=== PATIENT | male | born 1960 | race Caucasian/White ===

== ENCOUNTER → 2020-02-27 08:35 | Outpatient (CLI) | payer OTHER, SELFPAY ==
--- NOTE | 2020-02-26 | IMM_PTH ---
PATIENT: ZENOBIA THOMAS LOC: [facility] U#:[id number] AGE/SX: 64/M ROOM: RE02/27/[address]: Dr. Phil Hinojosa MD : 1960 BED: DIS: SPEC #: [id number] RECD: 03/01/20 10:19 STATUS: JOSÉ RE #: [id number] VIJAY: 02/26/20 00:[address]: Phil Hinojosa DEPT: IMMUNOHISTOCHEMISTRY RECD BY: Paola Enriquez Tissues: A - PROSTATE RIGHT B - PROSTATE RIGHT C - PROSTATE RIGHT D - PROSTATE LEFT E - PROSTATE LEFT F - PROSTATE LEFT Procedures: 34BE12 (add) P40 (add) 34BE12 (initial) PHYSICIAN & INSTITUTION [place] [id number] SPECIMEN INFORMATION: Tissue Source: A - Right apex, B - Right mid, C - Right base, D - Left apex, E - Left mid, F - Left base Clinical Info: Elevated PSA Specimen Number: [id number] A-F CPT code: 87303, 19416 x11 METHODOLOGY: Deparaffinized sections of prefer/formalin-fixed tissue or PAP/DQ stained slides are incubated with monoclonal/polyclonal antibodies/oligonucleotide probes. Localization is made via biotin free immunoperoxidase method. Appropriate controls are performed and reacted as expected. Results on target cell population are indicated in the following table: RESULTS: ANTIBODY / CLONE RESULT Block A P40 (BC28) negative 34BE12 (34BE12) negative Block B P40 (BC28) negative 34BE12 (34BE12) negative Block C P40 (BC28) negative 34BE12 (34BE12) negative Block D P40 (BC28) negative 34BE12 (34BE12) negative Block E P40 (BC28) positive 34BE12 (34BE12) positive Block F P40 (BC28) negative 34BE12 (34BE12) negative These tests were developed and their performance characteristics determined by [facility]. They may not have been cleared or approved by the U.[place]. Food and Drug Administration. The FDA has determined that such clearance or approval is not necessary. The above immunohistochemical/dualISH markers are ordered and reviewed by the Pathologist. INTERPRETATION: A. Right prostate, apex, core biopsy: A minute focus of adenocarcinoma. B. Right prostate, mid, core biopsy: Adenocarcinoma. C. Right prostate, base, core biopsy: A minute focus of adenocarcinoma. D. Left prostate, apex, core biopsy: A minute focus of adenocarcinoma. E. Left prostate, mid, core biopsy: Focal high-grade prostatic intraepithelial neoplasia (HGPIN). F. Left prostate, base, core biopsy: Adenocarcinoma. SJ:samantha 03/02/2020
--- NOTE | 2020-02-26 11:30 | PROSBIL_PTH ---
PATIENT: ZENOBIA THOMAS LOC: [facility] U#:[id number] AGE/SX: 64/M ROOM: RE02/27/[address]: Dr. Phil Hinojosa MD : 1960 BED: DIS: SPEC #: [id number] RECD: 02/26/20 17:53 STATUS: JOSÉ TOM #: [id number] VIJAY: 02/26/20 11:[address]: Phil Hinojosa DEPT: SURGICAL PATHOLOGY RECD BY: Camille Keenan Tissues: A - PROSTATE RIGHT B - PROSTATE RIGHT C - PROSTATE RIGHT D - PROSTATE LEFT E - PROSTATE LEFT F - PROSTATE LEFT Procedures: PROSTATE BX HEADER OPERATION: TRUS/biopsy PRE-OP DIAGNOSIS: Elevated PSA TISSUE SUBMITTED: A - Right apex, B - Right mid, C - Right base, D - Left apex, E - Left mid, F - Left base MICROSCOPIC DIAGNOSIS A. Right prostate, apex, core biopsy: A minute focus of prostatic adenocarcinoma. Ida grade: 3+3=6 Number of cores involved: 1/2 Proportion of tissue involved: <5% Perineural invasion: Not identified. Greatest tumor length: <0.1 cm Focal mild chronic inflammation. See comment. B. Right prostate, mid, core biopsy: Prostatic adenocarcinoma. [place] grade: 3+3=6 Number of cores involved: 2/2 Proportion of tissue involved: ~15-20% Perineural invasion: Not identified. Greatest tumor length: 0.4 cm Focal mild chronic inflammation. See comment. C. Right prostate, base, core biopsy: A minute focus of prostatic adenocarcinoma. Ida grade: 3+3=6 Number of cores involved: 1/2 Proportion of tissue involved: <5% Perineural invasion: Not identified. Greatest tumor length: <0.1 cm Focal mild chronic inflammation. Focal high-grade prostatic intraepithelial neoplasia (HGPIN). See comment. D. Left prostate, apex, core biopsy: A minute focus of prostatic adenocarcinoma. Ida grade: 3+3=6 Number of cores involved: 1/2 Proportion of tissue involved: <5% Perineural invasion: Not identified. Greatest tumor length: <0.1 cm Focal mild chronic inflammation. See comment. E. Left prostate, mid, core biopsy: Focal high-grade prostatic intraepithelial neoplasia (HGPIN). See comment. F. Left prostate, base, core biopsy: Prostatic adenocarcinoma. Ida grade: 3+3=6 Number of cores involved: 1/2 Proportion of tissue involved: ~35-40% Perineural invasion: Not identified. Greatest tumor length: 0.9 cm, discontinuous. Focal high-grade prostatic intraepithelial neoplasia (HGPIN). See comment. MCKENZIE:samantha 03/01/2020 COMMENT A-F. Immunohistochemistry ([id number]) supports the above diagnosis. Case has been reviewed in consultation with Dr. Toro who concurs with the above diagnosis. IDC:AM MICROSCOPIC DESCRIPTION Slides are reviewed. GROSS DESCRIPTION A - Received is one container designated prostate, right apex. The specimen consists of two elongated fragments of light mendez-white soft tissue each measuring 1 cm in length and 0.1 cm in diameter. The specimen is totally submitted in one cassette. B - Received is one container designated prostate, right mid. The specimen consists of two elongated fragments of light mendez-white soft tissue each measuring 1.5 cm in length and 0.1 cm in diameter. The specimen is totally submitted in one cassette. C - Received is one container designated prostate, right base. The specimen consists of two elongated fragments of light mendez-white soft tissue each measuring 1.5 cm in length and 0.1 cm in diameter. The specimen is totally submitted in one cassette. D - Received is one container designated prostate, left apex. The specimen consists of two elongated fragments of light mendez-white soft tissue each measuring 1 cm in length and 0.1 cm in diameter. The specimen is totally submitted in one cassette. E - Received is one container designated prostate, left mid. The specimen consists of two elongated fragments of light mendez-white soft tissue each measuring 1 cm in length and 0.1 cm in diameter. The specimen is totally submitted in one cassette. F - Received is one container designated prostate, left base. The specimen consists of two elongated fragments of light mendez-white soft tissue each measuring 1.5 cm in length and 0.1 cm in diameter. The specimen is totally submitted in one cassette. / AM:samantha 02/27/2020 TC:0 [facility]: [id number] x6
== END ==
PROVIDERS: Visit Provider Urology
DX: R97.20 Elevated prostate specific antigen [PSA] (principal)
CPT/HCPCS: 88305; 88341; 88342; G0416

== ENCOUNTER 2020-04-14 05:53 | Day surgery (SDC) | payer OTHER, SELFPAY ==
--- NOTE | 2020-04-13 08:39 | EKG12_ITS ---
Test Reason : PRE OP Blood Pressure : / mmHG Vent. Rate : 064 BPM Atrial Rate : 064 BPM P-R Int : 156 ms QRS Dur : 080 ms QT Int : 400 ms P-R-T Axes : 044 045 083 degrees QTc Int : 412 ms Normal sinus rhythm Nonspecific ST and T wave abnormality Abnormal ECG No previous ECGs available Confirmed by NIRMAL SERRA, ASAEL ([id number]), book editor LORRIE PALACIOS ([id number]) on 04/13/2020 11:49:53 AM Referred By: Phil Hinojosa Confirmed By:ASAEL KINNEY MD
[2020-04-13 10:45] LABS: Hematocrit 47.9 % (40-54); Hemoglobin 16.1 g/dL (13.0-16.5); Mean Corp Hgb Conc 33.6 g/dL (32-36); Mean Corpuscular Hgb 31.7 pg (27.0-32.0); Mean Corpuscular Volume 94.3 fL (80-94); Mean Platelet Vol. 9.8 fl (6.2-12.0); Platelet Count 238 K/mm3 (150-450); RBC Distribution Width SD 44.8 fl (35.1-43.9); Red Blood Count 5.08 M/mm3 (4.6-6.2); White Blood Count 6.8 K/mm3 (4.4-11.0)
[2020-04-14] VITALS (15 sets, daily range): BP systolic 110–138; BP diastolic 58–88; PULSE 64–86; RESP 16–20; TEMP 36.2–36.7; O2SAT 91–98; BMI 37.1
--- NOTE | 2020-04-14 | PROST_PTH ---
PATIENT: ZENOBIA THOMAS LOC: [facility] U#:[id number] AGE/SX: 59/M ROOM: RE04/14/[address]: Dr. Phil Hinojosa MD : 1960 BED: DIS: 04/15/2020 SPEC #: [id number] RECD: 04/14/20 13:15 STATUS: JOSÉ RECassidy #: [id number] VIJAY: 04/14/20 00:[address]: Phil Hinojosa DEPT: SURGICAL PATHOLOGY RECD BY: Patrick De Los Santos ENTERED: 04/15/20 07:29 SP TYPE: PROSTATE OTHR DR: Dr. Tapan Will MD Tissues: B - Prostate, NOS A - Adipose tissue Procedures: Surgery Specimen Level III Surgery Specimen Level HEADER OPERATION: Laparoscopic robotic radical prostatectomy with nerve sparing PRE-OP DIAGNOSIS: Malignant neoplasm of prostate, elevated PSA TISSUE SUBMITTED: A - Fat over prostate, B - Prostate MICROSCOPIC DIAGNOSIS A. Fat over prostate, biopsy: Pieces of mature adipose tissue, negative for carcinoma. B. Prostate, radical prostatectomy: Prostatic adenocarcinoma. See cancer summary in the comment section. SJ:samantha 04/20/2020 COMMENT PROSTATE CANCER (RADICAL) SUMMARY: Procedure: Radical Prostatectomy Prostate Size: Weight: 64 gm Size: 5 cm transversely, 4.5 cm anterior-posteriorly and 4 cm craniocaudally Histologic type: Adenocarcinoma Histologic grade: Grade group 2 (Ida 3 + 4) Intraductal Carcinoma: Not identified Tumor Quantitation: Estimated percentage of prostate involved by tumor: 30%, tumor is present in discontinuous fashion. Extraprostatic extension: present, focal Location of extraprostatic Extension: Right posterior Urinary Bladder Neck Invasion: Not identified Seminal Vesicle Invasion: Present, left Lymphvascular Invasion: Not identified Perineural Invasion: Present, extensive Margins: Involved by invasive carcinoma. Non-limited Linear length of positive margin: 4 mm Focality: Focal Location of positive margin: Right posterior Treatment effect: No known presurgical therapy. Regional Lymph Nodes: No lymph nodes submitted or found. Distant metastasis: Not applicable Additional Pathologic Findings: - Benign prostatic hyperplasia, glandular and stromal type. - Focal high-grade prostatic intraepithelial neoplasia (HGPIN). - Chronic inflammation. PATHOLOGIC STAGE: pT3 ab pNx Mx The above summary is in compliance with [employer] [place] (CAP) Cancer Protocols Checklist and [place] [employer] on Cancer (AJCC), Staging Manual, 8th Ed. The tumor involves both right and left lobe, apical, mid and basal portion of the prostate. The tumor in the right lobe measures approximately 3 x 1.5 x 1 cm and tumor in the left lobe measures 2.5 x 2.5 x 1 cm. Please make reference to previous specimen ([id number]) right prostate, apex, mid and base and left prostate, apex and base, core biopsies with diagnosis of prostatic adenocarcinoma. MICROSCOPIC DESCRIPTION Slides are reviewed. GROSS DESCRIPTION A - Received in fixative is one container labeled with the patient's name and designated fat over prostate. The specimen consists of two pieces of adipose tissue measuring 3 x 2.5 x 0.5 cm and 2.5 x 2 x 0.5 cm. No mass lesion is identified. Coal Pulverizer Operator sections are submitted in one cassette. B - Received in fixative is one container labeled with the patient's name and designated prostate. The specimen consists of a radical prostatectomy specimen consisting of prostate and attached bilateral seminal vesicles. The entire specimen weighs 64 gm. The prostate measures 5 cm transversely, 4.5 cm anterior-posteriorly and 4 cm craniocaudally. A small portion of right seminal vesicle is present and measures 2 x 1 x 0.5 cm and right vas deferens measures 3.5 cm in length and 0.5 cm in diameter. A small portion of left seminal vesicle is present and measures 1.5 x 1 x 1 cm and the left vas deferens measures 2.5 cm in length and 0.5 cm in diameter. The prostate is inked as follows: anterior surface - yellow, posterior surface - black, right lateral - blue, left lateral - green. The bilateral seminal vesicles and vas deferens posterior surface is inked black, anterior surface right seminal vesicle and vas deferens is inked blue and anterior left seminal vesicle and vas deferens is inked green. Sections of the prostate do not reveal any obvious mass lesions. Coal Pulverizer Operator sections are submitted in 20 cassettes as follows: 1 - right seminal vesicle and vas deferens, 2 - left seminal vesicle and vas deferens, 3 - apical margin, enface, 4 - bladder base margin, enface, 5 - most basal portion of prostate, enface, 6-10 - apical portion prostate, 11-14 - middle portion prostate, 15-20 - basal portion prostate. Sections will be submitted after overnight fixation. / SJ:samantha 04/15/20 TC:0 CPT: 94433, 93718
[2020-04-14] MEDS: Lactated Ringers 1,000 ML 100 ML IV ×3 (06:43→10:05)
[2020-04-14] MEDS: Cefazolin 2 GM in 0.9% Normal Saline 100 ML IV (07:24)
--- NOTE | 2020-04-14 07:35 | HP.PCM_ITS ---
Problem List (1) Prostate cancer Status: Acute History of Present Illness Date of Admission: 04/14/20 Chief Complaint: prostate cancer The patient is a 59 year old male with [place] 6 multiple cores ++, elected to have a nerve sparing radical prostatectomy. Past Medical History Allergies No Known Allergies Allergy (Verified 04/14/20 06:22) Home Medications: Ambulatory Orders Medication Instructions Recorded Multivitamin with Minerals 1 ea PO DAILY 04/07/20 [Multiple Vitamin] Mv-Mn/C/Glutamin/Lysin/[id number] 2 ea PO DAILY 04/07/20 [Airborne Gummies] Turmeric Root Extract [Turmeric] 500 mg PO DAILY 04/07/20 Surgical History: no surgical history Smoking Status: Never smoker Tobacco Use: Non-smoker Review of Systems Constitutional: Denies: Chills, Fever, Weight Change HEENT: Denies: Head Aches, Sinus Congestion, Sinus Drainage Cardiovascular: Denies: Chest Pain, Palpitations Respiratory: Denies: Cough, Shortness of breath at rest, Sputum production Gastrointestinal: Denies: Abdominal Pain, Nausea, Vomiting Genitourinary: Denies: Dysuria Musculoskeletal: Denies: Joint Pain, Joint Tenderness Skin: Denies: Rash, Wounds Neurological: Denies: Numbness, Tingling, Focal weakness Psychiatric: Denies: Anxiety, Depression, Homicidal Ideations, Suicidal Ideations Hematologic/ Lymphatic: Denies: Easy Bruising, Easy Bleeding VTE Information - Inpt Only VTE Present on Admission: No VTE Mechan Device Prophylaxis: SCD's - Physical Exam Vitals/I&O's: Vital Signs Temp Pulse Resp BP Pulse Ox 98.1 F 64 18 131/80 H 94 04/14/20 06:26 04/14/20 06:26 04/14/20 06:26 04/14/20 06:26 04/14/20 06:26 Oxygen Delivery Method Room Air Weight: 114.033 kg Body Mass Index (BMI) 37.1 General: Alert, Oriented x3, Cooperative HEENT: Atraumatic, PERRLA, EOMI, Normocephalic Neck: Supple, No JVD, Negative Carotid Bruits Lungs: Clear to auscultation, Normal air movement Cardiovascular: Regular rate, No murmurs Abdomen: Bowel Sounds Present, Soft, Non Tender Extremities: No edema, Capillary Refill Less than 3 Seconds Skin: No rashes, No breakdown Musculoskeletal: No Tenderness to Palpation of Joints or Extremities Neurological: Cranial nerves II-XII grossly intact Psych/Mental Status: Normal Affect, Appropriate Microbiology Past 72 Hours 04/13/20 08:55 Interface Orders SARS-CoV-2 Antigen (Rapid) - Final Laboratory Results 04/13/20 09:07: WBC 6.8, RBC 5.08, Hgb 16.1, Hct 47.9, MCV 94.3 H, MCH 31.7, MCHC 33.6, RDW Std Deviation 44.8 H, RDW Coeff of Ana Laura 13.0, Plt Count 238, MPV 9.8 04/13/20 09:07: Blood Type A POSITIVE, Antibody Screen NEGATIVE Current Medications Cefazolin Sodium 2 gm/ Sodium (Chloride) 110 mls @ 150 mls/hr IV PREOP ONE Stop: 04/14/20 08:13 Lactated Ringer's () 1,000 mls @ 100 mls/hr IV .Q10H NEGRO Last Admin: 04/14/20 06:43 Dose: 100 mls/hr Documented by: Assessment/Plan All Active Problems Prostate cancer (Acute) plan to proceed with nerve sparing radical prostatectomy.
--- NOTE | 2020-04-14 07:38 | DCINST_ITS ---
Discharge Diet: Light diet - advance as tolerated, Soft diet Discharge Activity: May not drive while taking narcotic pain medications., May Shower Return to work on:: 05/26/20 May resume sexual activity in: 6 weeks Call your doctor if your incision/area has: Continuous Slow Oozing, Sudden Increased Bleeding, Increased Pain/ Swelling, Increased Redness, Foul Smelling Discharge, Swelling at the incision site Call your doctor if you observe: Fever of 101 or Higher Suture Line Care: Avoid Pulling/Pushing, Avoid Pinching/Bending Instructions: Radical Prostatectomy Allergies/Adverse Reactions: Allergies No Known Allergies Allergy (Verified 04/14/20 06:22) Medications to take at Discharge Multivitamin with Minerals [Multiple Vitamin] 1 ea PO DAILY 04/07/20 Mv-Mn/C/Glutamin/Lysin/[id number] [Airborne Gummies] 2 ea PO DAILY 04/07/20 Turmeric Root Extract [Turmeric] 500 mg PO DAILY 04/07/20 Ciprofloxacin [Cipro] 500 mg PO BID #14 tab 04/14/20 Docusate Sodium [Colace] 100 mg PO BID #20 cap 04/14/20 Hydrocodone Bitart/Apap 5-325 [[place] 5MG-325MG] 1 tablet PO Q4H PRN PRN 7 Days #14 tablet 04/14/20 The following prescriptions were given: Ciprofloxacin [Cipro] 500 mg PO BID #14 tab Transmission Status: Pending to [facility] Docusate Sodium [Colace] 100 mg PO BID #20 cap Transmission Status: Pending to [facility] Hydrocodone Bitart/Apap 5-325 [[place] 5MG-325MG] 1 tablet PO Q4H PRN PRN 7 Days #14 tablet PRN Reason: Pain Transmission Status: Sent to [facility] Primary Care Physician: Tapan Will MD [Primary Care Provider] - Test Results: Test results from this visit will be discussed in further detail at your follow- up appointment, if applicable. Please Follow Up With: Phil Hinojosa MD - [phone] When: in 2 weeks, please call to make an appointment. Proposed Discharge Date: 04/15/20
--- NOTE | 2020-04-14 11:48 | OP.PCM_ITS ---
Problem List (1) Prostate cancer Status: Acute Report of Operation Date of Procedure: 04/14/20 Pre-Operative Diagnosis: prostate cancer Post-Operative Diagnosis: same Surgery/Procedure Performed:: radical prostatectomy robotic with bilateral nerve sparing Description of Surgical Findings:: Patient presented to the hospital for treatment of his prostate cancer with radical prostatectomy. In the preoperative setting we discussed the options of management for his prostate cancer including active surveillance, radiation treatments, radioactive seeds, and radical robotic prostatectomy. We discussed the side effects of surgery including the potential to lose erections. We discussed the potential to have bladder control problems with stress incontinence which can be temporary or permanent. We discussed the risk of the surgery including the risk of general anesthetic, risk of bleeding, risk of infection, and risk of formation of hernia either incisional hernia or inguinal hernia. After long discussion with the patient the preoperative setting and also reviewed this in the preop area patient signed the consent form and we proceeded with a radical prostatectomy. Patient was taken back to the operating room he was identified, time out procedure was performed and he was placed supine on the table he underwent general anesthesia with intubation. The abdomen was shaved prepped and draped in usual sterile fashion as well as the penis and testicles. A 16 Ghanaian catheter was placed into the bladder with clear return of urine. I then made an incision in the umbilicus and dissected down to the fascia advance a Veress needle into the peritoneal cavity and insufflated the peritoneal cavity with CO2 gas. I then placed a 12 mm trocar above the umbilicus. I then visualized the placement of the rest of the trochars, I placed a right arm robotic trocar, and air seal trocar, a suction port 5 mm trocar. And on the left side I placed 2 robotic arms. Once all the trochars were in placed the patient was put in steep Trendelenburg. And the robot was docked the arms were docked and then I placed the 0 degree camera through the robotic arm and also used a 30 degree camera during certain parts of the case. I used scissors in the right arm, prograsp in the third arm, and a bipolar in the second arm. Initial dissection was to free the sigmoid colon off the lateral wall this was done by meticulously dissecting off the peritoneum and the sigmoid colon off the left lateral wall. This then allowed the prograsp to retract the sigmoid colon out of the pelvis. I then sheridan t below the bladder and identified the vas deferens incised the peritoneum over the vas deferens and traced the vas deferens below the bladder to the prostate and identified the right and left vasa deferens. Below behind the vas deferens then the seminal vesicles were identified. I then dissected the seminal vesicle free using pinpoint electrocautery and then we identified the other seminal vesi hunter and then dissected this using pinpoint electrocautery I then elevated the vas deferens and several vesicles off the prostate and was able to sweep the Denonvilliers' fascia off the prostate posteriorly all the way up to the apex of the prostate. Working laterally I made sure I went as lateral as possible to sweep the Denonilliers' fascia off the posterior aspect of the prostate and worked my way back, I then transected the vas deferens and the left and right side the seminal vesicles were then dissected free. And then I pulled out of the pelvis. At this point the bladder was dropped creating the space of Retzius with the bladder on traction with the fourth arm. Using electrocautery I dissected in the anterior peritoneal fascia and then created the space of Retzius dissecting towards the prostate. The prostate was then cleaned of the fat over the prostate and the fourth arm was used to retract the bladder and place traction. I then identified the endopelvic fascia that was overlying the prostate on the right side I incised endopelvic fascia and wwept the levator muscles off the prostate all the way to the apex on the right side, I then worked my way anterior to the prostate then transected to the puboprostatic ligament and the underlying dorsal vein complex was not injured. I then went to the other side and identified the endopelvic fascia in the left side incised in a fashion the left side and swept the levator muscles off the prostate on the left side all the way up to the apex the puboprostatic ligament on the left side was then dissected and transected I then freed up the fascia overlying the dorsal vein complex. I then used the prograsp to encircled the dorsal vein complex with the prograsp and then switched over to the right and left needle driver supervisor and suture ligated the dorsal vein complex above the prograsp. The prograsp was then placed back in the bladder and put back on traction I then identified the junction between the bladder and the prostate and dissected down between the bladder and the prostate untilI came across the catheter we then dissected posteriorly to the bladder and prostate to free the prostate and the bladder off each other and the muscles between the bladder and the prostate was then cauterized to free up the bladder. I then went on top of the prostate and identified the endopelvic fascia on top of the prostate this was incised all the way to the apex and then we swept the endopelvic fascia off the prostate laterally and then identified the plane between endopelvic fascia and the prosthetic pseudocapsule and swept the fascia laterally until reaching the course of the neurovascular bundles and then released the neurovascular bundles off the prostate laterally all the way back in a retrograde fashion back to the junction of the pedicles then the prostate was placed on traction with the fourth arm pulling the prostate laterally identified the pedicle to the prostate between the seminal vesicles and the and the neurovascular bundle and this was taken using sequential small hemolocks. After the pedicle was taken the I then dissected underneath the prostate sweeping the neurovascular bundle off the prostate we able to follow the nice smooth plane between the neurovascular bundle and the pseudocapsule all the way to the apex once this was identified we swept this up all the way up to the apex and there was perfect nerve sparing on the right side. Then went to the left side the prostate identified the endopelvic fascia over the left side of the prostate I incised the endopelvic fascia all the way to the apex and then swept this off laterally I then released the neurovascular bundles on the left side of the prostate sweeping him off the prostate laterally I then elevated the prostate up up with the prostate and traction identified the pedicle to the prostate on the left side and then the pedicles taken with sequential Hem-o-olga lidia clips I then was able to dissected the neurovascular bundle off the left posterior aspect the prostate this was a perfect dissection all the way up on the left side following the pseudocapsule all the way up the left side until we reached the apex of the prostate. After the both the neurovascular bundles has been swept off the posterior to the prostate I then went above and transected the dorsal vein complex there was minimal to no bleeding but then dissected down to the urethra and circumfencial dissected around the urethra I then switched the right and left arm with the needle drivers and I suture-ligated the dorsal vein complex again just to ensure that there was no bleeding from the dorsal vein complex. I then transected through the urethra with scissors and the prostate was then freed and released off the prostate bed and put an Endo Catch bag. At this point the bladder neck was reconstructed and then an anastomosis was performed between the prostate and the bladder with a 3 oh V-Loc stitch in a running fashion starting from the bladder neck at the 6 o'clock position working to the 12 o'clock position with continuous stitches to complete a perfect anastomosis between the bladder and the prostate. I then placed a new catheter into the bladder, an 18 Ghanaian shoshone-bannock tip catheter flushed the bladder and there was no leakage from the anastomosis I put 10 cc in the balloon and pulled it up pulled back gently. I then ensured that there was no bleeding from the dorsal vein complex no bleeding from the neurovascular bundles FloSeal was placed as necessary once hemostasis was ensured and adequate then I placed the bladder back in position in the pelvis the prostate was exchanged to the camera port I closed the air seal port with a 10 12 Hiro Méndez stitch. And the extracted the prostate through the umbilicus. The robot was undocked all the ports were removed under direct visualization then closed the extraction site with 0 Vicryl with a CT1 needle once the extraction site was closed. I then closed all the incision with subcut icular stitches with 4-0 Monocryl and then bandages were placed on the incisions catheter was flushed to make sure it was draining well there was no clots and it was crystal clear patient's anesthetic was reversed he was extubated and taken back to the PACU in stable condition all the needles and sponges and instruments were accounted for. Blood loss was minimal and the drain was a 18 Ghanaian Kelly catheter. No other surgical drain was left. I was present during the entire case. Type of Anesthesia:: General Drains: kelly and TABATHA drain Estimated Blood Loss (mL): 300cc - Admit VTE Documentation VTE Present on Admission: No VTE Mechan Device Prophylaxis: SCD's
[2020-04-14] MEDS: Bupivacaine Mpf 0.5% 30 ML VIAL (11:50)
[2020-04-14] MEDS: Ketorolac 15 MG/ML Vial IV ×2 (13:34→20:03)
--- NOTE | 2020-04-14 13:53 | SUR.PHASEI ---
REPORTS SOME NUMBNESS TO RIGHT THUMB AND FIRST TWO FINGERS, NO OTHER SYMPTOMS. DOES STATE HE OCCASIONALLY HAVE SAME NUMBNESS IN LEFT HAND, UNSURE IF HE HAS CARPAL TUNNEL. DR RAMOS NOTIFIED, CONTINUE CURRENT PLAN OF CARE.
[2020-04-14] MEDS: Lactated Ringers 1,000 ML 125 ML IV ×2 (14:39→23:30)
[2020-04-14] MEDS: Ciprofloxacin 400 MG/200 ML BAG 200 MG IV (16:28)
[2020-04-14] MEDS: HYDROcodone Bitartrate/Apap 5/325 Tablet PO (18:30)
[2020-04-15 02:45] VITALS: BP 118/67; PULSE 68; RESP 18; TEMP 36.9; O2SAT 95
[2020-04-15] MEDS: Ketorolac 15 MG/ML Vial IV ×2 (02:45→08:48)
[2020-04-15] MEDS: HYDROcodone Bitartrate/Apap 5/325 Tablet PO ×2 (02:45→12:19)
[2020-04-15] MEDS: Ciprofloxacin 400 MG/200 ML BAG 200 MG IV (04:29)
[2020-04-15 05:49] LABS: Hematocrit 38.7 % (40-54); Hemoglobin 12.5 g/dL (13.0-16.5); Mean Corp Hgb Conc 32.3 g/dL (32-36); Mean Corpuscular Hgb 31.6 pg (27.0-32.0); Mean Corpuscular Volume 97.7 fL (80-94); Mean Platelet Vol. 9.2 fl (6.2-12.0); Platelet Count 178 K/mm3 (150-450); RBC Distribution Width CV 13.1 % (11.6-14.6); RBC Distribution Width SD 47.1 fl (35.1-43.9); Red Blood Count 3.96 M/mm3 (4.6-6.2); White Blood Count 10.8 K/mm3 (4.4-11.0)
[2020-04-15 06:09] LABS: Anion Gap 5 (5-15); BUN 10 mg/dL (7-18); BUN/Creat Ratio 11.2 RATIO (10-20); Calcium,Total 8.1 mg/dL (8.5-10.1); Chloride 107 mmol/L (98-107); EST Glomerular Filtration Rate 92 mL/min (>60); Est Glom Filt Rate - Afr Amer 111 mL/min (>60); Estimated Creatinine Clearance 87.28 ml/min; Glucose 147 mg/dL (74-106); Sodium Level 139 mmol/L (136-145)
[2020-04-15 08:45] VITALS: BP 125/72; PULSE 74; RESP 18; TEMP 36.8; O2SAT 94
[2020-04-15] MEDS: Lactated Ringers 1,000 ML 125 ML IV (08:48)
== END 2020-04-15 14:25 | disposition home or self-care (01) ==
LOC: SDC 05:54 → AC 05:54 → MS3 04-15 08:56
PROVIDERS: Anesthesiology; PCP Family Medicine; Referring Provider Urology; Visit Provider Urology
PROC: 0VT04ZZ Resection of Prostate, Percutaneous Endoscopic Approach (ICD-10-PCS; CPT 55866; principal; 2020-04-14 07:10)
DX: C61 Malignant neoplasm of prostate (principal); Z20.828 Contact with and (suspected) exposure to other viral communicable diseases; Z86.718 Personal history of other venous thrombosis and embolism; R94.31 Abnormal electrocardiogram [ECG] [EKG]
CPT/HCPCS: 55866; 36415; 80048; 85027; 86850; 86900; 86901; 87426; 88304; 88309; 93005; 99251; C9803; J7120; G0463; J0744; J2405

== ENCOUNTER → 2020-06-10 14:44 | Outpatient (CLI) | payer OTHER, SELFPAY ==
[2020-04-14 14:23] VITALS: BMI 37.1
[2020-06-10 16:17] LABS: PSA,Total- Diagnostic < 0.01 ng/mL (0.0-4.0)
== END ==
PROVIDERS: PCP Family Medicine; Referring Provider Urology; Visit Provider Urology
DX: C61 Malignant neoplasm of prostate (principal)
CPT/HCPCS: 36415; 84153

== ENCOUNTER → 2020-09-09 15:20 | Outpatient (CLI) | payer OTHER, SELFPAY ==
[2020-04-14 14:23] VITALS: BMI 37.1
[2020-09-09 16:12] LABS: PSA,Total- Diagnostic < 0.01 ng/mL (0.0-4.0)
== END ==
PROVIDERS: PCP Family Medicine; Visit Provider Urology
DX: R97.20 Elevated prostate specific antigen [PSA] (principal)
CPT/HCPCS: 36415; 84153

== ENCOUNTER → 2020-11-10 07:04 | Outpatient (CLI) | payer OTHER, SELFPAY ==
--- NOTE | 2020-11-10 07:07 | CT_ITS ---
STUDY: CT RIGHT LOWER EXTREMITY WITHOUT CONTRAST REASON FOR EXAM: Osteoarthritis of the right knee with varus deformity, surgical planning. TECHNIQUE: Transaxial CT imaging of the lower extremity was performed. Coronal and sagittal images were reformatted. Individualized dose optimization techniques were used for this CT. COMPARISON: None. FINDINGS: Knee: There are small marginal osteophytes of the medial femoral condyle, subchondral eburnation, a small subchondral cyst and moderately severe joint space narrowing of the medial femorotibial compartment (coronal reconstructions 27-31). There are very small marginal osteophytes of the lateral femorotibial compartment with preservation of joint space. There are small marginal osteophytes of the patellofemoral articulation and mild joint space narrowing of the medial aspect of the articulation (axial image 312). Normal proximal tibiofibular articulation. There is a small joint effusion. The quadriceps tendon is grossly normal. The patellar tendon is grossly normal. Normal Hoffa''s fat pad. The soft tissues are unremarkable. Hip: Unremarkable right hip joint. There is a bone island in the right femoral head. Ankle: There are small marginal osteophytes of the tibiotalar articulation with preservation of joint space. Normal posterior subtalar and talonavicular articulations. There is an os trigonum with cystic change adjacent to the synchondrosis (sagittal reconstructions 36). There is soft tissue calcifications at the medial aspect of the tibiotalar articulation (coronal reconstructions 24-26). CT/Extremity Lower without Contra IMPRESSION: Right knee osteoarthritis. Electronically Signed: Roland Sim MD at 13:28 EDT Tel , Service support ,
--- NOTE | 2020-11-10 07:10 | CT_ITS ---
STUDY: CT LEFT LOWER EXTREMITY WITHOUT CONTRAST REASON FOR EXAM: Varus deformity left knee, left knee osteoarthritis, surgical planning. TECHNIQUE: Transaxial CT imaging of the lower extremity was performed. Coronal and sagittal images were reformatted. Individualized dose optimization techniques were used for this CT. COMPARISON: None. FINDINGS: Knee: There are ae marginal osteophytes, subchondral eburnation and severe joint space narrowing of the medial femorotibial compartment (coronal reconstructions 33-37). There are small marginal osteophytes with preservation of the joint space of the lateral femorotibial compartment. There are small marginal osteophytes and mild joint space narrowing of the patellofemoral compartment (sagittal reconstruction 55). There is subchondral cystic change adjacent to the proximal tibiofibular articulation (sagittal reconstructions 55-62). There is no joint effusion. The quadriceps tendon is grossly normal. The patellar tendon is grossly normal. Normal Hoffa''s fat pad. There is an intra-articular body at the medial aspect of the patellofemoral articulation (axial images 310-314). Hip: Unremarkable left hip articulation. Ankle: There are small anterior osteophytes of the distal tibia and a small osteochondral lesion of the medial talar dome (coronal reconstructions 27, 28). There is a small intra-articular body at the posterior aspect of the posterior subtalar articulation (sagittal reconstructions 23, 24). Normal talonavicular and calcaneocuboid articulations. There is a small plantar calcaneal enthesophyte. CT/Extremity Lower without Contra IMPRESSION: Left knee osteoarthritis. Electronically Signed: Roland Sim MD at 13:48 EDT Tel , Service support ,
[2020-11-10 10:26] LABS: Absolute Lymphocyte Count 2.21 X10^3/uL (0.83-4.51); Absolute Neutrophil Count 4.2 X10^3/uL (2.0-7.7); Basophil# 0.04 X10^3/uL; Basophil% 0.5 % (0-1); Eosinophil# 0.51 X10^3/uL; Eosinophils% 6.6 % (0-5); Hematocrit 46.7 % (40-54); Lymphocyte # 2.21 X10^3/ul (0.83-4.51); Lymphocyte % 28.7 % (19-41); Mean Corp Hgb Conc 34.3 g/dL (32-36); Mean Corpuscular Hgb 32.1 pg (27.0-32.0); Mean Corpuscular Volume 93.6 fL (80-94); Mean Platelet Vol. 9.5 fl (6.2-12.0); Monocyte# 0.68 X10^3/uL; Monocyte% 8.8 % (0-10); NRBC Flagged by Analyzer 0 % (0-5); Neutrophil # 4.22 X10^3/uL (2.7-7.7); Neutrophil % 54.8 % (47-70); Platelet Count 229 K/mm3 (150-450); RBC Distribution Width SD 44.5 fl (35.1-43.9); Red Blood Count 4.99 M/mm3 (4.6-6.2); White Blood Count 7.7 K/mm3 (4.4-11.0)
[2020-11-10 10:50] LABS: Anion Gap 5 (5-15); BUN 21 mg/dL (7-18); BUN/Creat Ratio 23.6 RATIO (10-20); Calcium,Total 9.2 mg/dL (8.5-10.1); Chloride 108 mmol/L (98-107); Creatinine, Serum 0.89 mg/dL (0.70-1.30); EST Glomerular Filtration Rate 92 mL/min (>60); Est Glom Filt Rate - Afr Amer 112 mL/min (>60); Glucose 154 mg/dL (74-106); Potassium 4.1 mmol/L (3.5-5.1); Sodium Level 139 mmol/L (136-145)
== END ==
PROVIDERS: Physician Assistant Surgical; PCP Family Medicine; Referring Provider Specialist; Visit Provider Specialist
DX: Z01.818 Encounter for other preprocedural examination (principal); M21.162 Varus deformity, not elsewhere classified, left knee; M21.161 Varus deformity, not elsewhere classified, right knee
CPT/HCPCS: 36415; 73700; 80048; 85025

== ENCOUNTER → 2020-11-19 11:47 | Outpatient (CLI) | payer OTHER, SELFPAY ==
--- NOTE | 2020-11-19 11:50 | RAD_ITS ---
STUDY: X-RAY CHEST REASON FOR EXAM: Male, 60 years old. PREOP TECHNIQUE: PA and lateral COMPARISON: None. FINDINGS: The lungs are clear and expanded. There is no demonstrated pleural abnormality. Normal size heart. Normal mediastinum and maryuri. Normal visualized pulmonary arteries. Normal visualized aortic arch and descending thoracic aorta. Dorsal spine demonstrates moderate spondylosis. Normal visualized ribs, clavicles, and shoulders. There is no demonstrated abnormality of the visualized soft tissue structures of the upper abdomen. RAD/Chest PA and Lateral IMPRESSION: No acute cardiopulmonary pathology Electronically Signed: Jose Malagon MD at 16:49 EDT , Service support ,
== END ==
LOC: PSN 11:48
PROVIDERS: PCP Family Medicine; Referring Provider Physician Assistant Surgical; Visit Provider Physician Assistant Surgical
DX: Z01.818 Encounter for other preprocedural examination (principal)
CPT/HCPCS: 71046; 87635; C9803; U0005; U0003

== ENCOUNTER → 2020-12-20 08:23 | Outpatient (CLI) | payer OTHER, SELFPAY ==
[2020-12-20 09:27] LABS: Absolute Lymphocyte Count 1.97 X10^3/uL (0.83-4.51); Absolute Neutrophil Count 6.1 X10^3/uL (2.0-7.7); Basophil# 0.04 X10^3/uL; Basophil% 0.4 % (0-1); Eosinophil# 0.35 X10^3/uL; Eosinophils% 3.7 % (0-5); Hemoglobin 14.7 g/dL (13.0-16.5); Lymphocyte # 1.97 X10^3/ul (0.83-4.51); Lymphocyte % 20.8 % (19-41); Mean Corp Hgb Conc 33.4 g/dL (32-36); Mean Corpuscular Hgb 31.9 pg (27.0-32.0); Mean Corpuscular Volume 95.4 fL (80-94); Mean Platelet Vol. 9.3 fl (6.2-12.0); Monocyte# 1.04 X10^3/uL; NRBC Flagged by Analyzer 0 % (0-5); Neutrophil # 6.05 X10^3/uL (2.7-7.7); Neutrophil % 63.8 % (47-70); Platelet Count 309 K/mm3 (150-450); RBC Distribution Width CV 13.3 % (11.6-14.6); RBC Distribution Width SD 46.9 fl (35.1-43.9); Red Blood Count 4.61 M/mm3 (4.6-6.2); White Blood Count 9.5 K/mm3 (4.4-11.0)
[2020-12-20 09:58] LABS: Anion Gap 4 (5-15); BUN 20 mg/dL (7-18); BUN/Creat Ratio 22.3 RATIO (10-20); Calcium,Total 9.7 mg/dL (8.5-10.1); Chloride 108 mmol/L (98-107); EST Glomerular Filtration Rate 91 mL/min (>60); Est Glom Filt Rate - Afr Amer 111 mL/min (>60); Glucose 100 mg/dL (74-106); Potassium 4.1 mmol/L (3.5-5.1); Sodium Level 142 mmol/L (136-145)
== END ==
PROVIDERS: PCP Family Medicine; Referring Provider Physician Assistant Surgical; Visit Provider Physician Assistant Surgical
DX: Z01.818 Encounter for other preprocedural examination (principal)
CPT/HCPCS: 36415; 80048; 85025; 87635; C9803; U0005; U0003

== ENCOUNTER → 2021-01-11 13:06 | Outpatient (CLI) | payer OTHER, SELFPAY ==
[2021-01-11 14:00] LABS: PSA,Total- Diagnostic < 0.01 ng/mL (0.0-4.0)
== END ==
PROVIDERS: PCP Family Medicine; Referring Provider Urology; Visit Provider Urology
DX: C61 Malignant neoplasm of prostate (principal)
CPT/HCPCS: 36415; 84153

== ENCOUNTER → 2021-07-26 | Outpatient (CLI) | payer OTHER, SELFPAY ==
[2021-07-26 17:58] LABS: PSA,Total- Diagnostic < 0.01 ng/mL (0.0-4.0)
== END | disposition home or self-care (01) ==
PROVIDERS: PCP Family Medicine; Visit Provider Urology
DX: C61 Malignant neoplasm of prostate (principal)
CPT/HCPCS: 36415; 84153

== ENCOUNTER → 2022-01-25 | Outpatient (CLI) | payer OTHER, SELFPAY ==
[2022-01-25 13:57] LABS: PSA,Total- Diagnostic < 0.01 ng/mL (0.0-4.0)
== END | disposition home or self-care (01) ==
PROVIDERS: PCP Family Medicine; Referring Provider Urology; Visit Provider Urology
DX: C61 Malignant neoplasm of prostate (principal)
CPT/HCPCS: 36415; 84153

== ENCOUNTER → 2022-07-07 | Outpatient (CLI) | payer OTHER, SELFPAY ==
[2022-07-07 13:25] LABS: PSA,Total- Diagnostic < 0.01 ng/mL (0.0-4.0)
== END | disposition home or self-care (01) ==
LOC: LAB 12:18
PROVIDERS: PCP Family Medicine; Referring Provider Registered Nurse; Visit Provider Registered Nurse
DX: C61 Malignant neoplasm of prostate (principal)
CPT/HCPCS: 36415; 84153

== ENCOUNTER → 2023-01-26 | Outpatient (CLI) | payer OTHER, SELFPAY ==
[2023-01-26 11:37] LABS: PSA,Total- Diagnostic < 0.01 ng/mL (0.0-4.0)
== END | disposition home or self-care (01) ==
LOC: LAB 10:30
PROVIDERS: PCP Family Medicine; Referring Provider Urology; Visit Provider Urology
DX: C61 Malignant neoplasm of prostate (principal)
CPT/HCPCS: 36415; 84153

== ENCOUNTER → 2024-08-08 | Outpatient (CLI) | payer BC, SELFPAY ==
[2024-08-08 11:09] LABS: PSA,Total- Diagnostic 0.02 ng/mL (0.00-4.00)
== END | disposition home or self-care (01) ==
LOC: LAB.FUTURE 09:04 → LAB 09:18
PROVIDERS: PCP Family Medicine; Referring Provider Urology; Visit Provider Urology
DX: R97.20 Elevated prostate specific antigen [PSA] (principal)
CPT/HCPCS: 36415; 84153

== ENCOUNTER → 2024-12-03 | Outpatient (CLI) | payer BC, SELFPAY ==
--- NOTE | 2024-12-03 10:30 | NEURO ---
NCS and/or EMG Patient Report Ordering Doctor: Tapan Will DATE OF SERVICE: 12/03/24 Naseem presents with complaints of numbness and tingling in both hands primarily in digits 1 through 3. Electrodiagnostic findings: Median motor nerve demonstrates prolonged distal latency bilaterally. There is reduced conduction velocity bilaterally. There is reduced amplitude on the right side. Ulnar motor response within normal limits bilaterally. Prolonged median F–wave bilaterally. Absent median sensory response bilaterally. Normal ulnar and radial sensory responses. Needle EMG testing was performed upper limbs. All muscles tested showed no evidence of denervation with normal motor unit action potentials. Electrodiagnostic impression: This is an abnormal study. 1. Electrodiagnostic findings suggestive of bilateral median mononeuropathy. This consistent with a severe right carpal tunnel syndrome and a moderate to severe left carpal tunnel syndrome Multi Select Codes Neurology Neurology Interp Codes: 24399-32 Musc test done w/n test comp (interp) (2) and 17463-85 Nrv cndj test 9-10 studies (interp)
== END | disposition home or self-care (01) ==
PROVIDERS: PCP Family Medicine; Referring Provider Family Medicine; Visit Provider Family Medicine
DX: R20.0 Anesthesia of skin (principal)
CPT/HCPCS: 95886; 95911